=== PATIENT | female | born 1975 | race Caucasian/White ===

== ENCOUNTER 2021-01-30 13:42 | Observation (INO) ==
[2021-01-30] MEDS ORDERED: LEVAQUIN PREMIX IV 750 MG 750 MG/150 ML BAG IV SCH (15:04)
[2021-01-30] MEDS ORDERED: REMDESIVIR 200 MG in NS 100 ML IV 140 ML IV ONE (15:05)
[2021-01-30] MEDS: FORTAZ or TAZICEF VIAL INJ 1 G in NS 100 ML IV + SPIKE MINIBAG* 100 ML IV SCH ×2 (16:01→22:45)
[2021-01-30] MEDS: VSL#3 PO SCH (16:02)
[2021-01-30] MEDS: SOLU-Medrol 125 MG VIAL IVP SCH ×2 (16:02→22:45)
[2021-01-30] MEDS: NS 1,000 ML IV 1,000 ML IV SCH (16:02)
[2021-01-30] MEDS: ROBITUSSIN DM PO SCH ×3 (16:02→20:00)
[2021-01-30 16:06] LABS: BASOPHILS % (AUTO) 0.1 % (0.2-1.0); HEMATOCRIT 38.5 % (36.0-47.0); HEMOGLOBIN 13.3 g/dL (12.0-16.0); LYMPHOCYTES # (AUTO) 0.6 X10^3/uL (1.3-2.9); LYMPHOCYTES % (AUTO) 5.7 % (21.0-51.0); MEAN CORPUSCULAR HEMOGLOBIN 29.3 pg (27.0-34.0); MEAN CORPUSCULAR HGB CONC 34.4 g/dL (33.0-35.0); MEAN CORPUSCULAR VOLUME 85.1 fL (80.0-100.0); MEAN PLATELET VOLUME 8.7 fL (7.4-11.0); MONOCYTES # (AUTO) 0.6 x10^3/uL (0.3-0.8); MONOCYTES % (AUTO) 5.5 % (0.0-13.0); NEUTROPHILS # (AUTO) 9.9 x10^3/uL (2.2-4.8); NEUTROPHILS % (AUTO) 88.7 % (42.0-75.0); PLATELET COUNT 255 X10^3/uL (150.0-450.0); RED BLOOD COUNT 4.52 X10^6/uL (3.5-5.4); RED CELL DISTRIBUTION WIDTH 13.3 % (11.6-16.5); WHITE BLOOD COUNT 11.2 X10^3/uL (3.6-10.0)
[2021-01-30 16:14] LABS: ABG BASE EXCESS 1.1 mmol/L (-2.0-2.0); ABG HCO3 21.6 mmol/L (22-26)
[2021-01-30 16:15] LABS: ABG ALLEN TEST POS
[2021-01-30 16:21] LABS: ALANINE AMINOTRANSFERASE 162 Units/L (12-78); ALKALINE PHOSPHATASE 434 Units/L (46-116); ASPARTATE AMINO TRANSFERASE 120 Units/L (15-37); BLOOD UREA NITROGEN 7 mg/dL (7-18); CALCIUM 8.9 mg/dL (8.5-10.1); CARBON DIOXIDE 24.2 mmol/L (21-32); CHLORIDE 102 mmol/L (98-107); COR CA(FOR HYPOALB) 9.7 mg/dL (8.5-10.1); CREATININE 0.75 mg/dL (0.55-1.02); SODIUM 139 mmol/L (136-145); TOTAL PROTEIN 7.5 g/dL (6.4-8.2); eGFR NON BLACK RACES > 60 (>60)
[2021-01-30 16:45] VITALS: BMI 26.6
[2021-01-30] MEDS ORDERED: PULMICORT NEB TX 0.5 MG NEB ONE (19:06)
[2021-01-30] MEDS ORDERED: BROVANA ONE (19:06)
[2021-01-30] MEDS: IVERMECTIN PO SCH (20:00)
[2021-01-30] MEDS: TUSSIONEX PENNKINETIC SUSP PO PRN (20:02)
[2021-01-30] MEDS: ACCUNEB 1.25 MG NEBULE NEB SCH (21:00)
[2021-01-30] MEDS: PULMICORT NEB TX 0.5 MG NEB SCH (21:00)
[2021-01-30] MEDS: BROVANA IN SCH (21:00)
[2021-01-31 05:29] LABS: BASOPHILS % (AUTO) 0.1 % (0.2-1.0); LYMPHOCYTES # (AUTO) 0.8 X10^3/uL (1.3-2.9); LYMPHOCYTES % (AUTO) 10.1 % (21.0-51.0); MEAN CORPUSCULAR HEMOGLOBIN 29.6 pg (27.0-34.0); MEAN CORPUSCULAR VOLUME 84.6 fL (80.0-100.0); MEAN PLATELET VOLUME 8.5 fL (7.4-11.0); MONOCYTES # (AUTO) 0.4 x10^3/uL (0.3-0.8); MONOCYTES % (AUTO) 4.5 % (0.0-13.0); NEUTROPHILS # (AUTO) 6.9 x10^3/uL (2.2-4.8); NEUTROPHILS % (AUTO) 85.3 % (42.0-75.0); PLATELET COUNT 240 X10^3/uL (150.0-450.0); RED BLOOD COUNT 3.79 X10^6/uL (3.5-5.4); RED CELL DISTRIBUTION WIDTH 13.5 % (11.6-16.5)
[2021-01-31 05:40] LABS: HEMOGLOBIN 11.2 g/dL (12.0-16.0)
[2021-01-31 05:44] LABS: ALANINE AMINOTRANSFERASE 129 Units/L (12-78); ALBUMIN 2.4 g/dL (3.4-5.0); ALKALINE PHOSPHATASE 351 Units/L (46-116); ASPARTATE AMINO TRANSFERASE 93 Units/L (15-37); BLOOD UREA NITROGEN 9 mg/dL (7-18); CALCIUM 8.4 mg/dL (8.5-10.1); CARBON DIOXIDE 27.4 mmol/L (21-32); CHLORIDE 102 mmol/L (98-107); COR CA(FOR HYPOALB) 9.7 mg/dL (8.5-10.1); COR NA(FOR HYPERGLY) 139 mmol/L (136-145); CREATININE 0.58 mg/dL (0.55-1.02); SODIUM 138 mmol/L (136-145); TOTAL PROTEIN 6.2 g/dL (6.4-8.2); eGFR NON BLACK RACES > 60 (>60)
[2021-01-31 05:52] LABS: ABG BASE EXCESS 0.8 mmol/L (-2.0-2.0)
[2021-01-31 05:53] LABS: ABG ALLEN TEST POS
[2021-01-31] MEDS: ACCUNEB 1.25 MG NEBULE NEB SCH ×3 (05:59→21:04)
[2021-01-31] MEDS: FORTAZ or TAZICEF VIAL INJ 1 G in NS 100 ML IV + SPIKE MINIBAG* 100 ML IV SCH ×3 (06:05→21:03)
[2021-01-31] MEDS: SOLU-Medrol 125 MG VIAL IVP SCH ×3 (06:06→21:04)
[2021-01-31] MEDS: NS 1,000 ML IV 1,000 ML IV SCH ×2 (06:06→21:18)
--- NOTE | 2021-01-31 06:09 | RAD ---
HISTORYPNEUMONIA ABLASION, TUBAL, , ORTHOSTUDYCHEST, 1 [id number]/20/2021FINDINGSThe trachea is midline. The cardiac silhouette is unremarkable. Patchy bilateral alveolar infiltrates increased from prior study. No pleural effusion or pneumothorax. The bony thorax is unremarkable.IMPRESSIONBilateral interstitial and alveolar infiltrates increased from previous 01/30/2021..Electronically signed by: Gio Escalante (Jan 31, 2021 06:07:27)
[2021-01-31] MEDS: IVERMECTIN PO SCH (08:14)
[2021-01-31] MEDS: ROBITUSSIN DM PO SCH ×4 (08:14→21:03)
[2021-01-31] MEDS: REMDESIVIR 100 MG in NS 100 ML IV + SPIKE MINIBAG* 120 ML IV SCH (08:14)
[2021-01-31] MEDS: VSL#3 PO SCH (08:14)
[2021-01-31] MEDS ORDERED: SOMA TAB 350 MG PO PRN (08:33)
[2021-01-31] MEDS: TUSSIONEX PENNKINETIC SUSP PO PRN ×2 (08:40→21:04)
[2021-01-31] MEDS ORDERED: PHARMACY CONSULT - LOVENOX XX SCH (09:00)
[2021-01-31] MEDS: BROVANA IN SCH ×2 (09:05→21:04)
[2021-01-31] MEDS: PULMICORT NEB TX 0.5 MG NEB SCH ×2 (09:05→21:04)
[2021-01-31] MEDS ORDERED: FIORICET TAB PO PRN (09:35)
[2021-01-31] MEDS ORDERED: ACCUNEB 1.25 MG NEBULE NEB PRN (09:44)
[2021-01-31] MEDS: DIFLUCAN PO SCH (09:50)
[2021-01-31] MEDS: ASCORBIC ACID INJ MULTI-DOSE VIAL 1,500 MG in NS 50 ML IV 50 ML IV SCH ×4 (09:50→21:04)
[2021-01-31] MEDS: CLARITIN-D 12 HOUR TAB PO SCH (09:51)
[2021-01-31] MEDS: PROTONIX INJ 40 MG VIAL IVP SCH ×2 (09:51→21:04)
[2021-01-31] MEDS: TESSALON PERLES PO SCH ×3 (09:51→21:07)
[2021-01-31] MEDS: LIPITOR TAB 80 MG PO SCH (09:51)
[2021-01-31] MEDS: ZINC SULFATE PO SCH (09:52)
[2021-01-31] MEDS: LOVENOX INJ 30 MG SYR SC SCH ×2 (09:54→21:06)
[2021-01-31] MEDS: CELEBREX PO SCH (09:54)
--- NOTE | 2021-01-31 10:28 | DR.H&P ---
H&P - History & Physical for Day of: H&P Date: 01/30/21 - Chief Complaint Chief Complaint: COUGH, SHORTNESS OF BREATH, LOW OXYGEN SATURATIONS - History of Present Illness History of Present Illness: IS A 45 YEAR OLD PATIENT OF [facility] [email or web address]. SHE PRESENTED TO THE HOSPITAL A DIRECT ADMISSION TO OUR SERVICES FOR TREATMENT OF COVID PNEUMONIA AND HYPOXIA. PATIENT ADMITS TO HAVING COUGH, SHORNESS OF BREATH, WEAKNESS, AND SINUS CONGESTION FOR THE PAST 10 DAYS. SHE REPORTS THAT HER OXYGEN SATURATIONS HAVE DROPPED TO THE 80s ON MULTIPLE OCCASIONS. SHE HAS TAKEN A Z-PACK, STEROIDS, AND NEBULIZER TREATMENTS FOR THE PAST WEEK, WELL HAVING MULTIPLE IM ANTIBIOTIC AND ST[facility]ID INJECTIONS [facility]. HER PMH INCLUDES GERD. ON ARRIVAL TO THE HOSPITAL, VITALS WERE 98.3-95-28-92%-113/72. LABS WERE OBTAINED. ABNORMAL LAB VALUES INCLUDED THE FOLLOWING: WBC 11.3, D-DIMER 1.88, FERRITIN 435, AST 120, ALT 162, ALK PHOS 434, CRP 130.80, ALBUMIN 3.0. ABG OBTAINED AND REVEALED: PH 7.580, PC02 23.0, P02 54, HC03 21.6, 02 SAT 93, A-A GRADIENT 67, FI02 21. BLOOD AND SPUTUM CULTURES WERE SET UP. COVID-19 POSITIVE. CHEST XRAY REVEALED: Bilateral interstitial prominence and early alveolar infiltrates. Findings may represent atypical in fection, including viral etiologies. SHE WAS PLACED ON NASAL CANNULA AT 2 LITERS/MINUTE. SHE WAS STARTED ON NORMAL SALINE AT 75 ML/HR, REMDESIVIR 100MG IV DAILY, IVERMECTIN 15MG PO DAILY, SOLU-MEDROL 80MG IV Q8H, ACCUNEBS TID, PULMICORT NEBS BID, ASCORBIC ACID 1500MG IV Q6H, FORTAZ 1G IV Q8H, LEVAQUIN 500MG IV DAILY, LIPITOR 80MG PO DAILY, TESSALON PERLES 200MG TID, TUSSIONEX 12H PRN, DIFLUCAN 100MG PO DAILY, LOVENOX 30MG SC BID, ROBITUSSIN DM 10ML PO QID, PROBIOTICS, CLARITIN D DAILY, PROTONIX 40MG IV DAILY, ZINC SULFATE 220MG PO DAILY, AND HER HOME MEDICATIONS WERE RESUMED. OTHERWISE, WE PLAN TO FOLLOW UP WITH AM LABS AND CHEST XRAY AND CONTINUE TO MONITOR. TIME SPENT ON CLINICAL ASSESSMENT, REVIEWING LABS AND IMAGING, DECISION MAKING, AND DOCUMENTATION GREATER THAN 75 MINUTES. - Past Medical History Past Medical History: GERD - Past Surgical History Surgical History: No History - Social History Does patient currently use any type of tobacco product: No Have you used tobacco products in the last 12 months: No Type of Tobacco Use: None How many years tobacco product used: 10 Does any household member use tobacco: No Alcohol Use: None Drug Use: None - Medications Home Medications: No Known Drug Allergies Allergy (Verified 01/31/21 09:29) CONTINUE taking the following medications [id number] [Fioricet] 1 cap PO Q8H PRN 01/31/21 [History] carisoprodol [Soma] 350 mg PO TID PRN 01/31/21 [History] celecoxib [Celebrex] 200 mg PO DAILY 01/31/21 [History] ergocalciferol (vitamin D2) [Vitamin D2] 50,000 unit PO QWEEK 01/31/21 [History] loratadine-pseudoephedrine [Claritin-D 24 Hour] 1 tab PO DAILY 01/31/21 [History] pantoprazole [Protonix] 40 mg PO DAILY 01/31/21 [History] - Review of Systems Constitutional: Weakness Eyes: No Symptoms Reported ENT: No Symptoms Reported Respiratory: See HPI, Cough, Shortness of Breath, SOB with Excertion Cardiovascular: No Symptoms Reported Gastrointestinal: No Symptoms Reported Genitourinary: No Symptoms Reported Musculoskeletal: No Symptoms Reported Skin: No Symptoms Reported Neurological: Weakness - Physical Exam Vital Signs: Temperature 98.1 F Pulse Rate [Bilateral Radial] 95 Pulse Rate 88 Respiratory Rate 33 Blood Pressure [Left Arm] 113/72 Blood Pressure 109/71 O2 Sat by Pulse Oximetry 92 Oriented: Normal Eyes: Normal Ear: Normal Nose: Normal Throat: Normal Respiratory: Rales Throughout Cardiovascular: Normal : Normal Auscultation: Bowel Sounds: Normal Palpation: Normal Tenderness: Normal Skin: Normal Musculoskeletal: Normal Psychiatric: Normal Mood Description: Calm Affect: Normal Speech Pattern: Clear - Assessment/Plan (1) Pneumonia due to COVID-19 virus Status: Acute Plan: ADMIT, SUPPLEMENTAL OXYGEN, IV FLUIDS, IV ANTIBIOTICS, NEBULIZER TREATMENTS, IV STEROIDS, IMMUNE SUPPLEMENTS (2) Hypoxia Status: Acute - Allergies Allergies/Adverse Reactions: Allergies Allergy/AdvReac Type Severity Reaction Status Date / Time No Known Drug Allergies Allergy Verified 01/31/21 09:29
[2021-01-31] MEDS: LEVAQUIN PREMIX IV 500 MG 500 MG/100 ML BAG IV SCH (12:00)
[2021-01-31] MEDS ORDERED: FORTAZ or TAZICEF VIAL INJ ONE (20:34)
[2021-02-01] MEDS: ASCORBIC ACID INJ MULTI-DOSE VIAL 1,500 MG in NS 50 ML IV 50 ML IV SCH ×4 (03:00→20:37)
[2021-02-01] MEDS: ACCUNEB 1.25 MG NEBULE NEB SCH ×3 (05:11→20:26)
[2021-02-01] MEDS: FORTAZ or TAZICEF VIAL INJ 1 G in NS 100 ML IV + SPIKE MINIBAG* 100 ML IV SCH ×3 (05:47→21:04)
[2021-02-01] MEDS: NS 1,000 ML IV 1,000 ML IV SCH ×4 (05:47→23:40)
[2021-02-01] MEDS: TESSALON PERLES PO SCH ×3 (05:48→21:04)
[2021-02-01] MEDS: SOLU-Medrol 125 MG VIAL IVP SCH ×3 (05:48→21:04)
[2021-02-01] MEDS: CELEBREX PO SCH (08:09)
[2021-02-01] MEDS: CLARITIN-D 12 HOUR TAB PO SCH (08:09)
[2021-02-01] MEDS: ROBITUSSIN DM PO SCH ×4 (08:10→20:37)
[2021-02-01] MEDS: IVERMECTIN PO SCH (08:10)
[2021-02-01] MEDS: DIFLUCAN PO SCH (08:10)
[2021-02-01] MEDS: ZINC SULFATE PO SCH (08:11)
[2021-02-01] MEDS: VSL#3 PO SCH (08:11)
[2021-02-01] MEDS: LIPITOR TAB 80 MG PO SCH (08:11)
[2021-02-01] MEDS: PROTONIX INJ 40 MG VIAL IVP SCH ×2 (08:12→20:37)
[2021-02-01] MEDS: LOVENOX INJ 30 MG SYR SC SCH ×2 (08:12→20:44)
[2021-02-01 08:30] LABS: BASOPHILS % (AUTO) 0.4 % (0.2-1.0); HEMATOCRIT 30.7 % (36.0-47.0); HEMOGLOBIN 10.6 g/dL (12.0-16.0); LYMPHOCYTES # (AUTO) 0.9 X10^3/uL (1.3-2.9); LYMPHOCYTES % (AUTO) 9.3 % (21.0-51.0); MEAN CORPUSCULAR HEMOGLOBIN 29.4 pg (27.0-34.0); MEAN CORPUSCULAR HGB CONC 34.7 g/dL (33.0-35.0); MEAN CORPUSCULAR VOLUME 84.6 fL (80.0-100.0); MEAN PLATELET VOLUME 8.6 fL (7.4-11.0); MONOCYTES # (AUTO) 0.5 x10^3/uL (0.3-0.8); NEUTROPHILS # (AUTO) 8.1 x10^3/uL (2.2-4.8); NEUTROPHILS % (AUTO) 85.3 % (42.0-75.0); PLATELET COUNT 244 X10^3/uL (150.0-450.0); RED BLOOD COUNT 3.63 X10^6/uL (3.5-5.4); RED CELL DISTRIBUTION WIDTH 13.4 % (11.6-16.5); WHITE BLOOD COUNT 9.5 X10^3/uL (3.6-10.0)
[2021-02-01 08:38] LABS: ALANINE AMINOTRANSFERASE 115 Units/L (12-78); ALBUMIN 2.2 g/dL (3.4-5.0); ALKALINE PHOSPHATASE 280 Units/L (46-116); ASPARTATE AMINO TRANSFERASE 73 Units/L (15-37); BLOOD UREA NITROGEN 10 mg/dL (7-18); CHLORIDE 103 mmol/L (98-107); COR CA(FOR HYPOALB) 9.4 mg/dL (8.5-10.1); COR NA(FOR HYPERGLY) 139 mmol/L (136-145); CREATININE 0.73 mg/dL (0.55-1.02); SODIUM 138 mmol/L (136-145); TOTAL PROTEIN 5.5 g/dL (6.4-8.2); eGFR NON BLACK RACES > 60 (>60)
[2021-02-01] MEDS: BROVANA IN SCH ×2 (09:00→20:26)
[2021-02-01] MEDS: TUSSIONEX PENNKINETIC SUSP PO PRN ×2 (09:00→21:04)
[2021-02-01] MEDS: PULMICORT NEB TX 0.5 MG NEB SCH ×2 (09:00→20:26)
[2021-02-01] MEDS ORDERED: REMDESIVIR 100 MG in NS 100 ML IV + SPIKE MINIBAG* 120 ML IV NR (09:10)
[2021-02-01] MEDS: LEVAQUIN PREMIX IV 500 MG 500 MG/100 ML BAG IV SCH (09:15)
--- NOTE | 2021-02-01 09:37 | PCM.PROG ---
Progress Note - Progress Note for Day of Date of Exam: 02/01/21 - Subjective Subjective: IS BEING TREATED FOR COVID PNEUMONIA AND HYPOXIA. TODAY, SHE IS ALERT AND ORIENTED, LYING IN BED ON MORNING ROUNDS. SHE CONTINUES WITH COUGH AND SHORTNESS OF BREATH TODAY. SHE DOES ADMIT TO SLIGHT IMPROVEMENT IN SYMPTOMS SINCE ADMISSION. SHE CONTINUES TO UTILIZED OXYGEN VIA NASAL CANNULA AT 2 LITERS/MINUTE. HER SATURATIONS HAVE REMAINED IN THE 90s WHILE ON OXYGEN THROUGHOUT THE NIGHT. ON EXAMINATION, HEART IS REGULAR IN RATE AND RHYTHM. BILATERAL LUNGS NOTED WITH RHONCHI THROUGHOUT. ABDOMEN IS ROUND, SOFT, AND NON- TENDER WITH NORMAL BOWEL SOUNDS NOTED IN ALL QUADRANTS. HER VITALS THIS MORNING ARE: 97.8-74-25-92%-126/69. LABS WERE OBTAINED. ABNORMAL LAB VALUES INCLUDE THE FOLLOWING: HGB 10.6, HCT 30.7, CRP 28.70, BNP 133, FERRITIN 444, POTASSIUM 3.4, GLUCOSE 128, CALCIUM 8.0, AST 73, ALT 115, ALK PHOS 280, TOTAL PROTEIN 5.5, ALBUMIN 2.2. BLOOD AND SPUTUM CULTURES ARE PENDING. CHEST XRAY REVEALED: Bilateral interstitial and alveolar infiltrates increased from previous . SHE IS CURRENTLY RECEIVING NORMAL SALINE AT 75 ML/HR, REMDESIVIR 100MG IV DAILY, IVERMECTIN 15MG PO DAILY, SOLU-MEDROL 80MG IV Q8H, ACCUNEBS TID, PULMICORT NEBS BID, ASCORBIC ACID 1500MG IV Q6H, FORTAZ 1G IV Q8H, LEVAQUIN 500MG IV DAILY, LIPITOR 80MG PO DAILY, TESSALON PERLES 200MG TID, TUSSIONEX 12H PRN, DIFLUCAN 100MG PO DAILY, LOVENOX 30MG SC BID, ROBITUSSIN DM 10ML PO QID, PROBIOTICS, CLARITIN D DAILY, PROTONIX 40MG IV DAILY, ZINC SULFATE 220MG PO DAILY, AND HER HOME MEDICATIONS WERE RESUMED. WE WILL CONTINUE WITH CURRENT PLAN OF CARE TODAY. OTHERWISE, WE PLAN TO FOLLOW UP WITH AM LABS AND CHEST XRAY AND CONTINUE TO MONITOR. TIME SPENT ON CLINICAL ASSESSMENT, REVIEWING LABS AND IMAGING, DECISION MAKING, AND DOCUMENTATION GREATER THAN 45 MINUTES. - Past Medical Family Social History Past Med/Fam/Surg Hx: No changes since H&P Allergies: Allergies No Known Drug Allergies Allergy (Verified 01/31/21 09:29) - Review of Systems ROS: No change since H&P - Vital Signs and I&O's Vital Signs: Temperature 97.8 F Pulse Rate [Bilateral Radial] 95 Pulse Rate 74 Respiratory Rate 25 Blood Pressure [Left Arm] 113/72 Blood Pressure 126/69 O2 Sat by Pulse Oximetry 92 Intake and Output: Intake & Output 01/29/21 01/30/21 01/31/21 02/01/21 11:59 11:59 11:59 11:59 Intake Total 2525 / 2525 5114 / 5114 Balance 2525 / 2525 5564 / 5114 - Physical Exam Oriented: Normal Eyes: Normal Ear: Normal Nose: Normal Throat: Normal Respiratory: Generalized, Diminished Cardiovascular: Normal : Normal Auscultation: Bowel Sounds: Normal Palpation: Normal Tenderness: Normal Skin: Normal Musculoskeletal: Normal Psychiatric: Normal Mood Description: Calm Affect: Normal Speech Pattern: Clear, Appropriate - Laboratory and Diagnostics Result Diagrams: 02/01/21 04:40 02/01/21 04:40 Labs: 01/30/21 16:35 Sputum - Expectorated Sputum Sputum Culture - Final 01/30/21 16:35 Sputum - Expectorated Sputum - Final Laboratory WBC 9.5 X10^3/uL (3.6-10.0) 02/01/21 04:40 RBC 3.63 X10^6/uL (3.5-5.4) 02/01/21 04:40 Hgb 10.6 g/dL (12.0-16.0) L 02/01/21 04:40 Hct 30.7 % (36.0-47.0) L 02/01/21 04:40 MCV 84.6 fL (80.0-100.0) 02/01/21 04:40 MCH 29.4 pg (27.0-34.0) 02/01/21 04:40 MCHC 34.7 g/dL (33.0-35.0) 02/01/21 04:40 RDW 13.4 % (11.6-16.5) 02/01/21 04:40 Plt Count 244 X10^3/uL (150.0-450.0) 02/01/21 04:40 MPV 8.6 fL (7.4-11.0) 02/01/21 04:40 Neut % (Auto) 85.3 % (42.0-75.0) H 02/01/21 04:40 Lymph % (Auto) 9.3 % (21.0-51.0) L 02/01/21 04:40 [place] % (Auto) 5.0 % (0.0-13.0) 02/01/21 04:40 Eos % (Auto) 0.0 % (0.9-2.9) L 02/01/21 04:40 Baso % (Auto) 0.4 % (0.2-1.0) 02/01/21 04:40 Neut # (Auto) 8.1 x10^3/uL (2.2-4.8) H 02/01/21 04:40 Lymph # (Auto) 0.9 X10^3/uL (1.3-2.9) L 02/01/21 04:40 [place] # (Auto) 0.5 x10^3/uL (0.3-0.8) 02/01/21 04:40 Eos # (Auto) 0.0 x10^3/uL (0.0-0.2) 02/01/21 04:40 Baso # (Auto) 0.0 X10^3/uL (0.0-0.1) 02/01/21 04:40 Absolute Nucleated RBC 0.1 /100WBC 02/01/21 04:40 D-Dimer 1.88 ug/ml (0.0-0.57) H* 01/31/21 05:04 Sample Site Lr 01/31/21 05:00 ABG pH 7.470 (7.35-7.45) H 01/31/21 05:00 ABG pCO2 33.0 mmHg (35.0-45.0) L 01/31/21 05:00 ABG pO2 59.0 mmHg (80.0-100.0) L 01/31/21 05:00 ABG HCO3 24.0 mmol/L (22-26) 01/31/21 05:00 ABG O2 Saturation 92.0 % (90-100) 01/31/21 05:00 ABG Base Excess 0.8 mmol/L (-2.0-2.0) 01/31/21 05:00 Job Test Pos 01/31/21 05:00 A-a Gradient 99.0 mmHg 01/31/21 05:00 FiO2 28.0 01/31/21 05:00 Blood Gas Comments Ángel well sw 01/31/21 05:00 Sodium 138 mmol/L (136-145) 02/01/21 04:40 Corrected Sodium 139 mmol/L (136-145) 02/01/21 04:40 Potassium 3.4 mmol/L (3.5-5.1) L 02/01/21 04:40 Chloride 103 mmol/L (98-107) 02/01/21 04:40 Carbon Dioxide 24.0 mmol/L (21-32) 02/01/21 04:40 BUN 10 mg/dL (7-18) 02/01/21 04:40 Creatinine 0.73 mg/dL (0.55-1.02) 02/01/21 04:40 Est GFR (MDRD) Af Amer > 60 (>60) 02/01/21 04:40 Est GFR (MDRD) Non-Af > 60 (>60) 02/01/21 04:40 Glucose 128 mg/dL (65-99) H 02/01/21 04:40 Calcium 8.0 mg/dL (8.5-10.1) L 02/01/21 04:40 Corrected Calcium 9.4 mg/dL (8.5-10.1) 02/01/21 04:40 Ferritin 444 ng/mL (8-252) H 02/01/21 04:40 Total Bilirubin 0.20 mg/dL (0.2-1.0) 02/01/21 04:40 AST 73 Units/L (15-37) H 02/01/21 04:40 ALT 115 Units/L (12-78) H 02/01/21 04:40 Alkaline Phosphatase 280 Units/L (46-116) H 02/01/21 04:40 C-Reactive Protein 28.70 mg/L (0-3.0) H 02/01/21 04:40 B-Natriuretic Peptide 133 pg/mL (0-79) H 02/01/21 04:40 Total Protein 5.5 g/dL (6.4-8.2) L 02/01/21 04:40 Albumin 2.2 g/dL (3.4-5.0) L 02/01/21 04:40 Globulin 3.3 g/dL (2.5-4.5) 02/01/21 04:40 Albumin/Globulin Ratio 0.7 Ratio (1.1-2.1) L 02/01/21 04:40 SARS-CoV-2 (PCR) Positive (NEGATIVE) A 01/30/21 13:55 Influenza Type A (PCR) Negative (NEGATIVE) 01/30/21 13:55 Influenza Type B (PCR) Negative (NEGATIVE) 01/30/21 13:55 RSV (PCR) Negative (NEGATIVE) 01/30/21 13:55 - Plan (1) Pneumonia due to COVID-19 virus Status: Acute Plan: SUPPLEMENTAL OXYGEN, IV FLUIDS, IV ANTIBIOTICS, NEBULIZER TREATMENTS, IV STEROIDS, IMMUNE SUPPLEMENTS (2) Hypoxia Status: Acute
--- NOTE | 2021-02-01 09:46 | RAD ---
HISTORYCOVID PNEUMONIASTUDYCHEST x-ray, 1 VIEWCOMPARISONX-ray from previous dayFINDINGSBilateral lung infiltrates are similar to prior study. Findings suggest moderate to prominent COVID-19 pneumonia. Heart is normal in size. No pneumothorax or pleural effusion is seen.IMPRESSIONNo change in bilateral pneumonia.Electronically signed by: Ozzie Hendricks (Feb 01, 2021 09:45:20)
[2021-02-01] MEDS ORDERED: REMDESIVIR IV NR (10:00)
[2021-02-01] MEDS ORDERED: NS IV NR (10:00)
[2021-02-01] MEDS ORDERED: MICRO K EXTEN CAP 10 MEQ PO PRN (10:12)
[2021-02-01] MEDS ORDERED: K-DUR TAB 20 MEQ PO PRN (10:12)
[2021-02-01] MEDS ORDERED: KLOR-CON PO PRN (10:12)
[2021-02-01] MEDS: REMDESIVIR 100 MG in NS 100 ML IV + SPIKE MINIBAG* 120 ML IV SCH (14:14)
[2021-02-02] MEDS: ASCORBIC ACID INJ MULTI-DOSE VIAL 1,500 MG in NS 50 ML IV 50 ML IV SCH ×2 (04:03→08:20)
[2021-02-02 05:18] LABS: BASOPHILS % (AUTO) 0.2 % (0.2-1.0); HEMATOCRIT 28.9 % (36.0-47.0); HEMOGLOBIN 10.1 g/dL (12.0-16.0); LYMPHOCYTES # (AUTO) 0.9 X10^3/uL (1.3-2.9); LYMPHOCYTES % (AUTO) 10.5 % (21.0-51.0); MEAN CORPUSCULAR HEMOGLOBIN 29.5 pg (27.0-34.0); MEAN CORPUSCULAR VOLUME 84.4 fL (80.0-100.0); MEAN PLATELET VOLUME 8.1 fL (7.4-11.0); MONOCYTES # (AUTO) 0.6 x10^3/uL (0.3-0.8); NEUTROPHILS # (AUTO) 6.7 x10^3/uL (2.2-4.8); NEUTROPHILS % (AUTO) 82.3 % (42.0-75.0); PLATELET COUNT 247 X10^3/uL (150.0-450.0); RED BLOOD COUNT 3.42 X10^6/uL (3.5-5.4); RED CELL DISTRIBUTION WIDTH 13.5 % (11.6-16.5); WHITE BLOOD COUNT 8.1 X10^3/uL (3.6-10.0)
[2021-02-02] MEDS: SOLU-Medrol 125 MG VIAL IVP SCH (05:18)
[2021-02-02] MEDS: TESSALON PERLES PO SCH (05:18)
[2021-02-02] MEDS: FORTAZ or TAZICEF VIAL INJ 1 G in NS 100 ML IV + SPIKE MINIBAG* 100 ML IV SCH (05:18)
[2021-02-02 05:29] LABS: ALANINE AMINOTRANSFERASE 91 Units/L (12-78); ALKALINE PHOSPHATASE 237 Units/L (46-116); ASPARTATE AMINO TRANSFERASE 55 Units/L (15-37); BLOOD UREA NITROGEN 10 mg/dL (7-18); CALCIUM 7.7 mg/dL (8.5-10.1); CARBON DIOXIDE 25.8 mmol/L (21-32); CHLORIDE 105 mmol/L (98-107); COR CA(FOR HYPOALB) 9.3 mg/dL (8.5-10.1); COR NA(FOR HYPERGLY) 140 mmol/L (136-145); CREATININE 0.62 mg/dL (0.55-1.02); SODIUM 139 mmol/L (136-145); TOTAL PROTEIN 5.1 g/dL (6.4-8.2); eGFR NON BLACK RACES > 60 (>60)
[2021-02-02 05:31] LABS: PLATELET MORPHOLOGY COMMENT NORMAL (NORMAL)
[2021-02-02] MEDS ORDERED: POTASSIUM CHLORIDE LIQ 20 MEQ UDC PO PRN (05:39)
--- NOTE | 2021-02-02 05:57 | RAD ---
HISTORYCOVID+, SOB ABLASION, TUBAL, , ORTHO.brSTUDYCHEST, 1 [id number]/22/2021FINDINGSThe trachea is midline. The cardiac silhouette is unremarkable. Patchy bilateral pneumonic infiltrates are unchanged. No pleural effusion or pneumothorax. The bony thorax is unremarkable.IMPRESSIONPatchy bilateral pneumonia unchanged.Electronically signed by: Gio Escalante (Feb 02, 2021 05:56:19)
[2021-02-02] MEDS: ACCUNEB 1.25 MG NEBULE NEB SCH (06:03)
[2021-02-02] MEDS: BROVANA IN SCH (08:15)
[2021-02-02] MEDS: PULMICORT NEB TX 0.5 MG NEB SCH (08:15)
[2021-02-02] MEDS: CELEBREX PO SCH (08:20)
[2021-02-02] MEDS: CLARITIN-D 12 HOUR TAB PO SCH (08:21)
[2021-02-02] MEDS: DIFLUCAN PO SCH (08:22)
[2021-02-02] MEDS: IVERMECTIN PO SCH (08:22)
[2021-02-02] MEDS: LOVENOX INJ 30 MG SYR SC SCH (08:22)
[2021-02-02] MEDS: LEVAQUIN PREMIX IV 500 MG 500 MG/100 ML BAG IV SCH (08:22)
[2021-02-02] MEDS: LIPITOR TAB 80 MG PO SCH (08:22)
[2021-02-02] MEDS: VSL#3 PO SCH (08:23)
[2021-02-02] MEDS: ROBITUSSIN DM PO SCH (08:23)
[2021-02-02] MEDS: REMDESIVIR 100 MG in NS 100 ML IV + SPIKE MINIBAG* 120 ML IV SCH (08:23)
[2021-02-02] MEDS: PROTONIX INJ 40 MG VIAL IVP SCH (08:23)
[2021-02-02] MEDS: ZINC SULFATE PO SCH (08:24)
[2021-02-02 11:21] VITALS: BP 130/71
== END 2021-02-02 12:05 | disposition home or self-care (01) ==
LOC: MED/SURG → ICU
PROVIDERS: ADMIT Internal Medicine; ATTEND Internal Medicine
DX: J12.82 Pneumonia due to coronavirus disease 2019; R06.02 Shortness of breath; R00.0 Tachycardia, unspecified; U07.1 COVID-19; R79.82 Elevated C-reactive protein (CRP); R79.89 Other specified abnormal findings of blood chemistry; K21.9 Gastro-esophageal reflux disease without esophagitis